=== PATIENT | female | born 1965 | race Caucasian/White ===

== ENCOUNTER 2020-08-07 10:55 | Day surgery (SDC) | payer OTHER, SELFPAY ==
--- NOTE | 2020-08-05 10:16 | RAD REPORT ---
EXAM DESCRIPTION: Teena White And Lat (2 Views)08/05/2020 10:01 am CLINICAL HISTORY: Hypertension/preop for cardiac catheterization COMPARISON: None FINDINGS: The lungs are mildly hyperaerated. The lungs appear clear of acute infiltrate. The heart is normal size IMPRESSION: No acute abnormalities displayed
[2020-08-05 10:17] LABS: Absolute Lymphocytes (CBC) 2.1 K/uL (0.7-4.9); Basophils % 1.3 % (0-1.3); Lymphocytes % 36.4 % (15.3-44.8); MPV 9.4 fL (7.6-11.3); RBC Red Blood Cell Count 4.48 M/uL (3.86-4.86)
[2020-08-05 10:21] LABS: Protime INR 0.94
--- NOTE | 2020-08-05 17:13 | EKG ---
Test Date: 2020-08-05 Test Time: 09:53:03 Medical Office Specialist: CLAUDY MEASUREMENT RESULTS: Intervals: Rate: 78 CO: 146 QRSD: 74 QT: 390 QTc: 444 [place]: P: 80 CO: 146 QRS: 80 T: 79 INTERPRETIVE STATEMENTS: Normal sinus rhythm Normal ECG Compared to ECG 03/04/2015 23:19:25 No significant changes Electronically Signed On 08-05-20 17:12:45 EGG BREAKER by Wesley Guerra
[2020-08-07] MEDS ORDERED: NA CHLORIDE 0.9% 500 ML ONE (11:40)
[2020-08-07] MEDS ORDERED: HEPA 1000U/500MLS 2,000 UNIT/1,000 ML BAG IV ONE (12:24)
[2020-08-07] MEDS ORDERED: ATROPINE SULF 1 MG/10 ML SYR IV ONE (12:25)
[2020-08-07] MEDS ORDERED: HEPARIN 5000 UNIT/ML 1 ML VIAL ONE ×2 (12:25→12:32)
[2020-08-07] MEDS ORDERED: MIDAZOLAM HCL 2 MG/2 ML INJ ONE (12:26)
[2020-08-07] MEDS ORDERED: NITROGLYCERIN/D5W 0 MG/0 ML BTL IV ONE (12:26)
[2020-08-07] MEDS ORDERED: NITROGLYCERIN 100 MCG/ML SYR (for cath lab use only) IV ONE (12:26)
[2020-08-07] MEDS ORDERED: VERAPAMIL HCL 10 MG/4 ML VIAL IV ONE (12:26)
[2020-08-07] MEDS ORDERED: FENTANYL CITR 100 MCG/2 ML ONE (12:26)
--- NOTE | 2020-08-07 13:31 | OP ---
Date of Procedure: 08/07/2020 Surgeon: JEET STEINBERG Procedures Performed: 1.Selective coronary angiogram. 2.Right heart catheterization. 3.Left heart catheterization. Indication: 1.Unstable angina. 2.Dyspnea on exertion. Access Site: 1.Radial artery 6-Indian, closed with TR band. 2.right IJ 7-Indian, closed with manual pressure. Complications: None. Anesthesia: Total sedation time was 15 minutes. Description Of Procedure: After risks, benefits, and alternatives were explained, the patient agreed to procedure and signed informed consent. The patient was brought into the cardiac catheterization laboratory, prepped and draped in usual sterile fashion. We used fentanyl and Versed in incremental doses to achieve adequate moderate sedation. Then, we accessed the right IJ under the ultrasound kita dance using a micropuncture kit and placed a 7-Indian sheath and then accessed right radial artery us ing pediatric micropuncture kit and placed a 6-Indian slender sheath. Then, I took a 7-Indian Diablo c atheter, balloon tipped through the right IJ access into the RA. Pressure was recorded, then to the RV. Pressure waveform was recorded and then to the PA. Pressure waveform and sat were obtained and recorded, then wedge and pressure waveform were recorded. Then removed the Diablo catheter and then we took a 5-Indian [place] catheter through the right radial artery into the aortic root over a J-wire, e ngaged left main and the right coronary artery, took standard views and then the catheter was advance d over the wire into the LV, recorded LVEDP and then the catheter was pulled out and no difference in gradient was noted. Then, we removed the catheter. Both sheaths were removed. TR band was applied for radial artery hemostasis and pressure was applied for the right IJ puncture site for hemostasis. No complications. Findings: 1.Coronary arteries are normal. Left main is normal and large. 2.LAD is normal with the left circumflex nondominant artery and normal. 3.RCA large and dominant and is normal. 4.LVEDP was elevated at 20 mmHg. 5.Right heart catheterization numbers: RA pressure was 6, RV pressure was 30/4 with mean 11, PA pre ssure was 31/7 with mean of 15. Pulmonary wedge pressure was 12 mmHg. Impression: 1.Normal coronary arteries. 2.Slightly elevated LVEDP at 20 mmHg. Recommendation: 1.Medical management with diuretics and blood pressure control. 2.Discharge home once the criteria are met and see me in the office in 1-2 weeks. /MITCHELLL Voice ID: [id number] Report ID: [id number]
[2020-08-07 14:48] VITALS: TEMP 97
[2020-08-07 15:33] VITALS: BP 126/76; O2SAT 97
== END 2020-08-07 15:40 | disposition home or self-care (01) ==
LOC: CCL 10:55
PROVIDERS: ATTEND Internal Medicine
DX: I20.0 Unstable angina (principal); R06.02 Shortness of breath
CPT/HCPCS: 93005; 85025; 80048; 36415; 85610; 85730; 71046; 93460; C1893; J1644 ×2; J2250; J3010; J7040